=== PATIENT | female | born 1970 | race Caucasian/White ===

== ENCOUNTER → 2018-01-01 14:29 | Outpatient (CLI) | payer OTHER, SELFPAY ==
--- NOTE | 2018-01-01 14:34 | BD_ITS ---
STUDY: DUAL ENERGY X-RAY ABSORPTIOMETRY / DXA REASON FOR EXAM: Female, 47 years old. Postmenopausal female. History of breast cancer. Smoker. TECHNIQUE: Bone Mineral Density (BMD) measurements of lumbar spine and left hip were obtained. COMPARISON: None. FINDINGS: Lumbar Spine (L1-L4): g/cm2 (0.995) / T-score (-1.5) / Z-score (-1.2) Findings are suggestive of osteopenia with a moderate fracture risk. Left Femur Total: g/cm2 (0.660) / T-score (-2.8) / Z-score (line is 2.3) Left Femoral Neck: g/cm2 (0.692) / T-score (-2.5) / Z-score (-1.7) BD/Dexa Bone Density Study IMPRESSION: The patient is considered osteoporotic as outlined below according to World John Organization (WHO) criteria with a high fracture risk. Reference Information: The T-score is the number of standard deviations above or below the standard which is normal for young adults at their peak bone mineral density. The World Health Organization (WHO) interprets the T-scores as follows: Above -1 Normal bone density Between -1 and -2.5 Osteopenia Equal to / or below -2.5 Osteoporosis As a practical clinical guideline, osteopenia may be graded as follows: Mild -1 through -1.5 Moderate -1.6 through -2.0 Severe -2.1 through -2.4 The Z-score is the number of standard deviations above or below age-matched controls. A Z-score of less than -1.5 would be considered abnormal. References: 1. NIH Osteoporosis and Related Bone Diseases http://www.osteo.org 2. International Society for Clinical Densitometry http://www.iscd.org 3. National Osteoporosis Foundation http://www.nof.org Electronically Signed: Bobby Lynn DO at 9:06 EDT Tel [phone], Service support ,
== END ==
DX: M89.9 Disorder of bone, unspecified (principal)
CPT/HCPCS: 77080

== ENCOUNTER 2018-02-11 16:56 | Emergency (ER) | payer OTHER, SELFPAY ==
[2018-02-11 16:57] VITALS: BP 138/84; PULSE 99; RESP 16; TEMP 36.9; O2SAT 98; BMI 21.4
--- NOTE | 2018-02-11 17:20 | EKG12_ITS ---
Test Reason : CP Blood Pressure : / mmHG Vent. Rate : 083 BPM Atrial Rate : 083 BPM P-R Int : 128 ms QRS Dur : 080 ms QT Int : 382 ms P-R-T Axes : 053 053 070 degrees QTc Int : 448 ms Normal sinus rhythm Normal ECG Confirmed by CYNDY LANE, NOAM ([id number]), research editor FARAZ JOHNSON ([id number]) on 02/13/2018 2:46:15 PM Referred By: TAWNYA Confirmed By:NOAM NAYLOR MD
--- NOTE | 2018-02-11 17:23 | ED.VISSUMM ---
- ER Visit Summary Date of Service: 02/11/18 Chief Complaint: Chest pain History of Present Illness: The patient is a 48 F with a few week history of reflux and pain in her lower ribs. She was seen by Suzi Hardin today and sent to the emergency room. Patient states she did leave work early last night because she felt feverish and achy. She developed a cough yesterday as well. Patient has a history of COPD, high cholesterol, reflux disease, breast cancer with a lumpectomy a year and a half ago. Physical Examination: Vital signs are unremarkable. Pulse ox is 98% on room air. Patient sitting upright in bed no acute distress. Head neck examination is normal. Heart is regular rate and rhythm. Lung sounds are clear. She has reducible tenderness in the bilateral lower ribs laterally. Abdomen is soft with tenderness in epigastric region. No guarding or rebound. Lower extremity examination was no calf tenderness or edema. Test Results: EKG is sinus 83 with no sign of acute ischemia. Portable chest x-ray shows hyperexpansion without other findings. CBC and chemistry studies are unremarkable. Troponin is less than 0.015. D-dimer slightly elevated at 0.71. CTA of the chest was obtained with no evidence of PE. The descending aorta is measuring 3.4 cm in diameter. There is a focal peribronchial consolidation in the right middle lobe which may represent early pneumonia. Emphysema is noted. Emergency Department Course and Treatment: Patient was given a GI cocktail and Protonix here. On repeat evaluation her reflux is improved. Patient has had a bit of fever and cough. She will be treated with a course of Levaquin, first dose given here. She will also be given a prescription for Protonix. Treatment Plan: [] Disposition: Discharge Impression: 1. Pneumonia 2. GERD This note was generated with [employer] dictation software. It may contain incorrect words, spelling, and punctuation that were not noted in review of the chart prior to signing ED Disposition - Plan for ED Patient: Chief Complaint: Chest Pain Referrals: Marianne Hidalgo NP-C [Primary Care Provider] -
--- NOTE | 2018-02-11 17:25 | RAD_ITS ---
STUDY: X-RAY CHEST REASON FOR EXAM: Female, 48 years old. Chest pain TECHNIQUE: Single AP portable view of the chest. COMPARISON: Prior chest radiograph of May 27, 2017 FINDINGS: Continued generalized hyperexpansion without new consolidation, focal atelectasis or pleural effusion. There is no demonstrated pleural abnormality. Normal size heart. Normal mediastinum and gurpreet. Normal visualized pulmonary arteries. There is atherosclerotic tortuosity of the aortic arch and descending thoracic aorta. Normal visualized thoracic spine. Normal visualized ribs, clavicles, and shoulders. There is no demonstrated abnormality of the visualized soft tissue structures of the upper abdomen. RAD/Chest 1 View (Portable) IMPRESSION: Continued hyperexpansion without other findings or changes. Electronically Signed: Kimberli Lancaster MD at 18:02 EDT , Service support ,
[2018-02-11] MEDS: 0.9% Normal Saline 1,000 ML 150 ML IV (17:42)
[2018-02-11] MEDS: Aspirin 81 MG TAB.CHEW 324 MG PO (17:42)
[2018-02-11] MEDS: Pantoprazole Sodium 40 MG Tablet PO (17:43)
[2018-02-11 17:45] LABS: Absolute Lymphocyte Count 1.49 X10^3/ul (0.83-4.51); Absolute Neutrophil Count 5.5 X10^3/uL (2.0-7.7); Basophil# 0.03 X10^3/uL; Basophil% 0.4 % (0-1); Eosinophil# 0.18 X10^3/uL; Eosinophils% 2.2 % (0-5); Hematocrit 39.3 % (37-47); Hemoglobin 13.1 g/dl (12.0-15.0); Lymphocyte # 1.49 X10^3/ul (4.0); Lymphocyte % 18.6 % (19-41); Mean Corp Hgb Conc 33.3 g/gl (32-36); Mean Corpuscular Hgb 30.9 pg (27.0-32.0); Mean Corpuscular Volume 92.7 fL (81-99); Mean Platelet Vol. 8.4 fl (6.2-12.0); Monocyte# 0.79 X10^3/uL; Monocyte% 9.8 % (0-10); Neutrophil # 5.53 X10^3/uL (2.7-7.7); Neutrophil % 68.9 % (47-70); Platelet Count 242 K/mm3 (150-450); RBC Distribution Width CV 13.4 % (11.6-14.6); RBC Distribution Width SD 44.8 fl (35.1-43.9); Red Blood Count 4.24 M/mm3 (4.2-5.4)
[2018-02-11 17:46] LABS: POSITIVE COUNT NO; POSITIVE DIFFERENTIAL NO; POSITIVE MORPHOLOGY NO
[2018-02-11 17:56] LABS: D-Dimer Quantitative (DVT/PE) 0.71 FEU/ug/m (0.27-0.49)
--- NOTE | 2018-02-11 17:58 | ED.RN ---
[facility]. MD AND NURSE NOTIFIED
[2018-02-11 18:02] LABS: Anion Gap 6 (5-15); BUN 11 mg/dL (7-18); BUN/Creat Ratio 13.1 RATIO (10-20); Chloride 107 mmol/L (98-107); Creatinine, Serum 0.84 mg/dL (0.55-1.02); EST Glomerular Filtration Rate 77 mL/min (>60); Est Glom Filt Rate - Afr Amer 93 mL/min (>60); Estimated Creatinine Clearance 77.92 ml/min; Glucose 84 mg/dL (74-106); Potassium 3.7 mmol/L (3.5-5.1); Sodium Level 140 mmol/L (136-145)
[2018-02-11 18:05] VITALS: BP 115/87; PULSE 89; RESP 18; O2SAT 98
[2018-02-11 18:06] VITALS: BP 115/87; PULSE 83; RESP 28; O2SAT 99
--- NOTE | 2018-02-11 18:16 | CT_ITS ---
STUDY: CTA CHEST REASON FOR EXAM: Female, 48 years old. Chest pain and elevated d-dimer. History of COPD and breast cancer. RADIATION DOSAGE (If Supplied By Facility): CTDIvol = ( 5.17 ) mGy, DLP = ( 235.01 ) mGycm TECHNIQUE: The examination was performed with the intravenous administration of 75 prior chest radiograph of February 11, 2018 ml of Isovue 370 contrast material. Post-processing of the angiographic images was performed, with multiplanar reformation and 3D reconstruction. Individualized dose optimization techniques were used for this CT. COMPARISON: None. FINDINGS: Normal enhancement of the main pulmonary artery and right and left pulmonary arteries. Normal enhancement of the bilateral peripheral pulmonary arteries. There is no demonstrated pulmonary embolism. Diameter of the descending aorta is 3.4 cm. Otherwise negative for plaque or tortuosity. There is no demonstrated aortic dissection. Normal heart and pericardium. Normal mediastinum. Normal hilar regions. Emphysematous changes of the upper lobes. Focal peribronchial consolidation in the medial segment of the right middle lobe. Mild bibasilar atelectatic changes. Negative for pleural effusion. Normal chest wall structures. Normal osseous structures. Normal visualized upper abdomen. CT/CTA Chest W/WO Contrast IMPRESSION: Negative for pulmonary embolus. Diameter of the ascending aorta is 3.4 cm. Otherwise negative for calcified plaque, tortuosity or dissection. Negative for coronary calcifications. Focal peribronchial consolidation in the medial segment of the right middle lobe, potential pneumonic process. Negative for hilar or mediastinal mass density. Generalized emphysematous changes of the upper lung zones. Bronchial thickening of the lower lung zones. Mild posterior bibasilar atelectatic changes. Negative for pleural effusion. Electronically Signed: Kimberli Lancaster MD at 19:27 EDT , Service support ,
[2018-02-11 19:25] VITALS: BP 118/74; PULSE 71; RESP 18; O2SAT 99
--- NOTE | 2018-02-11 20:01 | DCINST.ED_ITS ---
ED Disposition - Plan for ED Patient: Disposition: Home or Assisted Living Chief Complaint: Chest Pain Instructions: ED Pneumonia Adult, ED GERD Prescriptions: Levofloxacin [Levaquin] 750 mg PO DAILY #4 tablet Pantoprazole Sodium [Protonix] 40 mg PO DAILY #14 tablet Referrals: Marianne Hidalgo, TEA BAG MACHINE TENDER-C [Primary Care Provider] - 1 Week
[2018-02-11 20:09] VITALS: BP 118/87; PULSE 84; PULSE 90; RESP 17; RESP 19; O2SAT 98; O2SAT 99
[2018-02-11] MEDS: levoFLOXacin 750 MG Tablet PO (20:14)
== END 2018-02-11 20:18 | disposition home or self-care (01) ==
PROVIDERS: Emergency Provider Emergency Medicine; Family Provider Nurse Practitioner Family; PCP Nurse Practitioner Family
DX: J18.9 Pneumonia, unspecified organism (principal); R07.9 Chest pain, unspecified; K21.9 Gastro-esophageal reflux disease without esophagitis; R79.89 Other specified abnormal findings of blood chemistry; F32.9 Major depressive disorder, single episode, unspecified; J44.9 Chronic obstructive pulmonary disease, unspecified; E78.00 Pure hypercholesterolemia, unspecified; Z85.3 Personal history of malignant neoplasm of breast; Z79.899 Other long term (current) drug therapy; Z72.0 Tobacco use
CPT/HCPCS: 71045; 71275; 80048; 84484; 85025; 85379; 93005; 96360; 96361; 99285; J7030; Q9967

== ENCOUNTER → 2018-02-13 15:00 | Outpatient (CLI) | payer OTHER, SELFPAY ==
--- NOTE | 2018-02-13 15:29 | VDLE_ITS ---
Reason For Study: LEG PAIN RIGHT LEFT CFV is compressible, spontaneous, phasic, GSV is normal. competent and demonstrates normal CFV is compressible, spontaneous, phasic, augmentation. competent, and demonstrates normal Procedure augmentation. Exam performed in department. FV is compressible, spontaneous, phasic, A preliminary report was called and/or faxed competent and demonstrates normal to Rolando Lucio. augmentation. POP V is compressible, spontaneous, phasic, competent and demonstrates normal augmentation. T/P Trunk is compressible. PTV is compressible. LT PerV is compressible. Interpretation Summary Deep veins of the left lower extremity are patent and compressible segmentally. There is no evidence of left lower extremity deep vein thrombosis. Valvular competence appears intact within the proximal deep venous system on the left . The left greater saphenous vein appears patent and compressible segmentally. Ordering Physician: ROLANDO LUCIO Referring Physician: Rolando Beebe Performed By: Destini Leslie RVT
== END ==
DX: M79.605 Pain in left leg (principal)
CPT/HCPCS: 93971

== ENCOUNTER → 2018-03-06 14:48 | Outpatient (CLI) | payer OTHER, SELFPAY ==
--- NOTE | 2018-03-06 15:01 | RAD_ITS ---
STUDY: X-RAY CHEST REASON FOR EXAM: Female, 48 years old. Recent treatment for pneumonia. History of breast cancer. TECHNIQUE: PA and lateral views of the chest. COMPARISON: Comparison is made with prior study dated February 11, 2018. FINDINGS: Hyperinflation. Scattered calcified granulomas. No acute abnormality is seen. There is no demonstrated pleural abnormality. Normal size heart. Normal mediastinum and gurpreet. Normal visualized pulmonary arteries. Normal visualized aortic arch and descending thoracic aorta. Normal visualized thoracic spine. Normal visualized ribs, clavicles, and shoulders. There is no demonstrated abnormality of the visualized soft tissue structures of the upper abdomen. RAD/Chest PA and Lateral IMPRESSION: Hyperinflation. No acute abnormality is seen. Electronically Signed: Fady Carpio MD at 15:28 EDT Tel [phone], Service support ,
== END ==
DX: J18.9 Pneumonia, unspecified organism (principal)
CPT/HCPCS: 71046

== ENCOUNTER 2018-03-11 20:13 | Emergency (ER) | payer OTHER, SELFPAY ==
[2018-03-11 20:14] VITALS: BP 123/92; PULSE 118; RESP 31; TEMP 36.7; O2SAT 99; BMI 21.7
--- NOTE | 2018-03-11 20:36 | EKG12_ITS ---
Test Reason : CP Blood Pressure : / mmHG Vent. Rate : 106 BPM Atrial Rate : 106 BPM P-R Int : 148 ms QRS Dur : 080 ms QT Int : 360 ms P-R-T Axes : 080 052 080 degrees QTc Int : 478 ms Sinus tachycardia Nonspecific T wave abnormality Abnormal ECG Confirmed by LUIS MIGUEL LANE, OSKAR ([id number]), assistant production editor FARAZ JOHNSON ([id number]) on 03/17/2018 2:34:00 PM Referred By: uSzi [facility] Confirmed By:OSKAR BOLANOS MD
[2018-03-11 20:39] VITALS: O2SAT 96
[2018-03-11 20:47] LABS: Absolute Lymphocyte Count 0.77 X10^3/ul (0.83-4.51); Absolute Neutrophil Count 7.5 X10^3/uL (2.0-7.7); Basophil# 0.02 X10^3/uL; Basophil% 0.2 % (0-1); Eosinophil# 0.01 X10^3/uL; Eosinophils% 0.1 % (0-5); Hemoglobin 13.6 g/dl (12.0-15.0); Lymphocyte # 0.77 X10^3/ul (4.0); Mean Corp Hgb Conc 34.9 g/gl (32-36); Mean Corpuscular Hgb 31.6 pg (27.0-32.0); Mean Corpuscular Volume 90.7 fL (81-99); Mean Platelet Vol. 8.7 fl (6.2-12.0); Monocyte# 0.24 X10^3/uL; Monocyte% 2.8 % (0-10); Neutrophil # 7.53 X10^3/uL (2.7-7.7); Neutrophil % 87.7 % (47-70); Platelet Count 271 K/mm3 (150-450); RBC Distribution Width CV 13.4 % (11.6-14.6); White Blood Count 8.6 K/mm3 (4.4-11.0)
[2018-03-11 20:48] LABS: POSITIVE COUNT NO; POSITIVE DIFFERENTIAL NO; POSITIVE MORPHOLOGY NO
--- NOTE | 2018-03-11 20:48 | RAD_ITS ---
STUDY: X-RAY CHEST REASON FOR EXAM: Female, 48 years old. Chest pain. TECHNIQUE: Single AP portable view of the chest. COMPARISON: March 06, 2018. FINDINGS: There is a minimally decreased inspiratory effort. There is no new infiltrate or mass. There is no demonstrated pleural abnormality. Normal size heart. Normal mediastinum and gurpreet. Normal visualized pulmonary arteries. Normal visualized aortic arch and descending thoracic aorta. The thoracic spine is obscured by the mediastinum. Normal visualized ribs, clavicles, and shoulders. There is no demonstrated abnormality of the visualized soft tissue structures of the upper abdomen. RAD/Chest 1 View (Portable) IMPRESSION: No acute cardiopulmonary disease or major interval change. Electronically Signed: Bobby Lynn DO at 21:03 EDT Tel [phone], Service support ,
[2018-03-11 20:59] LABS: Anion Gap 12 (5-15); BUN 11 mg/dL (7-18); BUN/Creat Ratio 10.5 RATIO (10-20); Calcium,Total 9.4 mg/dL (8.5-10.1); Chloride 104 mmol/L (98-107); Creatinine, Serum 1.05 mg/dL (0.55-1.02); EST Glomerular Filtration Rate 59 mL/min (>60); Est Glom Filt Rate - Afr Amer 71 mL/min (>60); Estimated Creatinine Clearance 62.33 ml/min; Glucose 167 mg/dL (74-106); Potassium 3.2 mmol/L (3.5-5.1); Sodium Level 142 mmol/L (136-145)
--- NOTE | 2018-03-11 21:13 | CT_ITS ---
STUDY: CTA OF THE ABDOMINAL AORTA REASON FOR EXAM: Female, 48 years old. Abdominal pain. Question dissection. History of pneumonia and breast cancer. RADIATION DOSAGE (If Supplied By Facility): CTDIvol = ( 6.61 ) mGy, DLP = ( 320.77 ) mGycm TECHNIQUE: Axial CT angiography multi-detector data acquisition was obtained from the diaphragm to the upper pelvic following intravenous administration of 100ML ml of Isovue 370 contrast. Axial images and MIP images were reconstructed from the axial data set. Post-processing of the angiographic images was performed, with multiplanar reformation and 3D reconstruction. Individualized dose optimization techniques were used for this CT. TECHNICAL QUALITY: Good COMPARISON: None. Descriptors of Narrowing: None (0%) Mild (< 50%) Moderate (50-70%) Severe (70-90%) Subtotal/Total Occlusion (90-100%) Non-Evaluable (technically non-diagnostic FINDINGS: Abdominal aorta: There is minimal atherosclerotic changes of the abdominal aorta. There is no evidence of stricture. There is a small fusiform dilatation of the distal aorta measuring 2.1 x 1.8 cm at the level of the SMA. This tapers to the bifurcation. There is no dissection. Celiac and superior mesenteric arteries: No demonstrated narrowing. Inferior mesenteric artery: No demonstrated narrowing. Right renal artery(arteries): No demonstrated narrowing. Left renal artery(arteries): No demonstrated narrowing. Right common iliac artery: Normal atherosclerotic changes without stenosis. Right external iliac artery: No demonstrated narrowing. Right internal iliac artery: No demonstrated narrowing. Left common iliac artery: There is minimal atherosclerotic changes without stenosis Left external iliac artery: No demonstrated narrowing. Left internal iliac artery: Minimal atherosclerotic changes without stenosis. The lung bases are clear. The heart is normal in size. The liver is mildly enlarged but without mass. Normal gallbladder and biliary ductal system. Normal spleen. Normal pancreas. Normal adrenal glands. Normal kidneys. Normal IVC and retroperitoneum. There is a type I hiatal hernia. The distal stomach is unremarkable. Normal visualized small bowel. Normal visualized colon. Normal abdominal wall. Normal lumbar spine. IMPRESSION: 1. No evidence of aortic dissection. 2. Small fusiform infrarenal abdominal aortic aneurysm with a maximum diameter of 2.1 x 1.8 cm. 3. Hepatomegaly. 4. Hiatal hernia 5. No other evidence for abdominal or pelvic abnormality. Electronically Signed: Bobby Lynn DO at 22:03 EDT Tel [phone], Service support , STUDY: CTA CHEST REASON FOR EXAM: Female, 48 years old. Chest and abdominal pain. Question dissection. Recent pneumonia. History of breast cancer. RADIATION DOSAGE (If Supplied By Facility): CTDIvol = ( ) mGy, DLP = ( ) mGycm TECHNIQUE: The examination was performed with the intravenous administration of 100ML ml of Isovue 370 contrast material. Post-processing of the angiographic images was performed, with multiplanar reformation and 3D reconstruction. Individualized dose optimization techniques were used for this CT. COMPARISON: Chest, March 11, 2018. CTA of the chest, February 11, 2018. FINDINGS: Normal enhancement of the main pulmonary artery and right and left pulmonary arteries. Normal enhancement of the bilateral peripheral pulmonary arteries. There is no demonstrated pulmonary embolism. Normal thoracic aorta and visualized great vessels. There is no aneurysm. There is no demonstrated aortic dissection. Normal heart and pericardium. Normal mediastinum. Normal hilar regions. Normal visualized trachea and bronchi. The lungs are hyper expanded, with flattening of the hemidiaphragms. There are emphysematous changes of lungs without focal mass or infiltrate. Normal pleura. Normal chest wall structures. Normal osseous structures. There is a large type I hiatal hernia. Visualized abdomen is unremarkable. CT/CTA Abdomen W/WO Contrast IMPRESSION: 1. No evidence of aortic aneurysm or dissection. 2. No evidence of pulmonary embolus. 3. Emphysematous changes of lungs without mass or infiltrate. 4. Hiatal hernia Electronically Signed: Bobby Lynn DO at 22:03 EDT Tel [phone], Service support ,
[2018-03-11 21:23] VITALS: BP 125/94; PULSE 101; RESP 19; O2SAT 97
[2018-03-11 21:40] LABS: Lipase 117 U/L (73-393)
[2018-03-11 21:41] LABS: AST(SGOT) 36 U/L (15-37); Alanine Aminotransfer ALT/SGPT 36 U/L (13-56); Albumin, Serum 4.3 g/dL (3.2-5.0); Alkaline Phosphatase 85 U/L (45-117); Bilirubin, Direct 0.12 mg/dL (0.00-0.30); Globulin 3.6 g/dL (2.2-4.2); Protein, Total 7.9 g/dL (6.4-8.2)
[2018-03-11 23:06] VITALS: BP 137/89; PULSE 101; RESP 20; O2SAT 94
[2018-03-12 00:14] VITALS: BP 142/88; PULSE 91; O2SAT 98
--- NOTE | 2018-03-12 00:31 | ED.DCSUM_ITS ---
- ER Visit Summary Date of Service: 03/12/18 Chief Complaint: Heartburn History of Present Illness: The patient is a 48 F who presents with chief complaint of heartburn. She complains of pain in her lower chest and upper abdomen which she describes as burning and pressure-like. She has had symptoms like this previously. She improved with a GI cocktail. She also complains of nausea. However she also complains of burning pain in the back of her left shoulder and down her left arm as well as pain down her left leg. She had prior similar symptoms recently. She was ultimately diagnosed with pneumonia based on some subtle changes on CT of the chest. She came in because her symptoms were worse today. Physical Examination: Initial heart rate 118 pulse ox 96% respiratory rate 31 Patient is tearful and appears very anxious Moist mucous membranes Heart regular rhythm tachycardia Lungs are clear Abdomen soft nontender nondistended Studies nontender no edema 2+ radial and dorsalis pedis pulses 5 out of 5 dorsiflexion, plantarflexion, extensor hallucis longus Alert with no focal or lateralizing neurological deficits Test Results: EKG shows a sinus rhythm at rate 106. Chest x-ray shows no acute process. CBC BMP hepatic function lipase troponin all normal. CTA of the chest and abdomen showed a small fusiform abdominal aortic aneurysm otherwise normal. Emergency Department Course and Treatment: Given patient's report of chest pain abdominal pain as well as arm and leg pain duration was given to aortic dissection. Workup is unremarkable. Patient was given a GI cocktail here with further improvement of symptoms again. We will place her on Prilosec and Carafate. Patient will follow-up with her primary care physician. I do believe a component of her symptoms are psychosomatic in nature. However she was advised of the need for further outpatient workup and evaluation and understands to return for new or worsening symptoms. Treatment Plan: [] Disposition: Discharge Impression: Chest pain Abdominal pain Left arm pain Left leg pain This note was generated with [employer] dictation software. It may contain incorrect words, spelling, and punctuation that were not noted in review of the chart prior to signing ED Disposition - Plan for ED Patient: Chief Complaint: Chest Pain Referrals: Suzi Beebe [Primary Care Provider] -
--- NOTE | 2018-03-12 00:34 | ED.DEP ---
ED Disposition - Plan for ED Patient: Chief Complaint: Chest Pain Instructions: ED Gastritis, ED Chest Pain NonCardiac, ED Abdominal Pain Unkn Cause Prescriptions: Omeprazole [Prilosec] 20 mg PO DAILY #30 cap Sucralfate [Carafate] 1 gm PO 4X/DAY #40 tab Referrals: Free Keaton,Suzi Hardin [Primary Care Provider] -
[2018-03-12 00:40] VITALS: RESP 18
== END 2018-03-12 00:41 | disposition home or self-care (01) ==
LOC: ED 21:22
PROVIDERS: Emergency Provider Emergency Medicine
DX: R07.89 Other chest pain (principal); R10.10 Upper abdominal pain, unspecified; M79.602 Pain in left arm; M79.605 Pain in left leg; R06.00 Dyspnea, unspecified; R11.0 Nausea; R05 Cough; I71.4 Abdominal aortic aneurysm, without rupture; J44.9 Chronic obstructive pulmonary disease, unspecified; E78.00 Pure hypercholesterolemia, unspecified; F41.9 Anxiety disorder, unspecified; Z90.710 Acquired absence of both cervix and uterus; Z79.899 Other long term (current) drug therapy; Z72.0 Tobacco use
CPT/HCPCS: 71045; 71275; 74175; 80048; 80076; 83690; 84484; 85025; 93005; 99284; Q9967

== ENCOUNTER → 2018-05-08 09:07 | Outpatient (CLI) | payer OTHER, SELFPAY | DX: Z86.000 Personal history of in-situ neoplasm of breast (principal) | CPT/HCPCS: 77062; 77066; G0279 ==

== ENCOUNTER 2018-05-14 09:05 | Day surgery (SDC) | payer OTHER, SELFPAY ==
--- NOTE | 2018-05-14 | GASB_PTH ---
PATIENT: DUANE CALLAHAN LOC: EN U#:[id number] AGE/SX: 48/F ROOM: RE05/14/[address]: Dr. Ralph Guerrero MD : 1970 BED: DIS: 05/14/2018 SPEC #: [id number] RECD: 05/14/18 12:48 STATUS: HERMAN AME #: [id number] MURTAZA: 05/14/18 00:[address]: Ralph Guerrero DEPT: SURGICAL PATHOLOGY RECD BY: Jamari Shin ENTERED: 05/14/18 12:48 SP TYPE: Gastric Bx OTHR DR: Marianne Hidalgo, MARKETING SENIOR RECRUITER-C [facility] [place] Tissues: Gastric mucous membrane Procedures: Surgery Specimen Level IV HEADER OPERATION: Colonoscopy, EGD ([facility]) PRE-OP DIAGNOSIS: Epigastric pain, hiatal hernia TISSUE SUBMITTED: Antral biopsy for histo and H. pylori MICROSCOPIC DIAGNOSIS Antral biopsy: Mild gastritis. SJ:modesta 05/15/18 COMMENT The results of immunohistochemistry for Helicobacter pylori will be reported separately ([id number]). MICROSCOPIC DESCRIPTION Slides are reviewed. The specimen shows fragments of gastric mucosa with chronic inflammatory cell infiltrates in the lamina propria consisting of lymphocytes and plasma cells, consistent with mild chronic gastritis. GROSS DESCRIPTION Received in fixative is one container labeled with the patient's name and designated antral biopsy. The specimen consists of one irregular fragment of light duarte soft tissue that measures 0.3 x 0.3 x 0.1 cm. The specimen is totally submitted in one cassette. / BRENDEN:modesta 05/14/18 TC:5 CPT: 14962
[2018-05-14 09:23] VITALS: BP 120/84; PULSE 88; RESP 16; TEMP 36.2; O2SAT 100; BMI 22.6
--- NOTE | 2018-05-14 09:57 | PCM.OPRPT ---
Problem List (1) Epigastric pain Status: Acute (2) Screen for colon cancer Status: Acute Report of Operation Date of Procedure: 05/14/18 Pre-Operative Diagnosis: Epigastric abdominal pain. Screening colonoscopy Post-Operative Diagnosis: Same Surgery/Procedure Performed:: Esophagogastroduodenoscopy with biopsy. Flexible sigmoidoscopy Type of Anesthesia:: MAC Description of Procedure: Patient was brought into the endoscopy suite back of her throat was sprayed with Cetacaine spray. A bite block was placed. She was placed on the left lateral decubitus position. She was given graded anesthesia. The scope was inserted into the back of the oropharynx and directed down through the esophagus into the stomach and into the duodenum without difficulty operative findings: 1. Duodenum: Normal appearance no mass lesions no ulcerations no signs of bleeding this was all the way from the duodenal bulb through the second part of the duodenum it looked pristine. The pylorus looked pristine. 2. Stomach: Significant antral gastritis biopsy for H. pylori was obtained. There was no signs of ulcerations. Retroflexion did show a small hiatal hernia. No masses were identified. 3. Esophagus: Z line was at 39 cm diaphragmatic hiatus was at 41 cm. This area looked normal without any signs of esophagitis. Z line was in perfect condition. There was no indications for any biopsies. Colonoscope was inserted into the rectum patient had solid stool in the rectum as I try to get in and around and through the sigmoid colon it was obvious that the bowel prep had not been accomplished any degree of satisfaction and I felt that the risk of injury outweighed any benefit that I would see in doing the colonoscopy on her particularly when I need to look at the mucosa and it is discovered with solid stool I aborted the procedure only completing a flexible sigmoidoscopy which was severely limited due to the amount of stool located within her colon. I will get her rescheduled and do a different bowel prep on her see if we can better clear her out. - Admit VTE Documentation VTE Present on Admission: No VTE Mechan Device Prophylaxis: SCD's VTE Pharm Prophylaxis ordered?: No Reason prophylaxis not ordered:: Treatment Not Indicated
--- NOTE | 2018-05-14 10:00 | IMM_PTH ---
PATIENT: DUANE CALLAHAN LOC: EN U#:[id number] AGE/SX: 48/F ROOM: RE05/14/[address]: Dr. Ralph Guerrero MD : 1970 BED: DIS: 05/14/2018 SPEC #: [id number] RECD: 05/14/18 12:29 STATUS: HERMAN RENarayan #: [id number] MURTAZA: 05/14/18 10:[address]: Ralph Guerrero DEPT: IMMUNOHISTOCHEMISTRY RECD BY: Tawanna De Leon ENTERED: 05/14/18 12:30 SP TYPE: IMMUNO OTHR DR: Marianne Hiadlgo, FABRIC FINISHER-C [facility] Tissues: Stomach, NOS Procedures: H Pylori (initial) PHYSICIAN & INSTITUTION [place] [id number] SPECIMEN INFORMATION: Tissue Source: Antral biopsy Clinical Info: Epigastric pain, hiatal hernia Specimen Number: [id number] CPT code: 69074 METHODOLOGY: Deparaffinized sections of prefer/formalin-fixed tissue or PAP/DQ stained slides are incubated with monoclonal/polyclonal antibodies/oligonucleotide probes. Localization is made via biotin free immunoperoxidase method. Appropriate controls are performed and reacted as expected. Results on target cell population are indicated in the following table: RESULTS: ANTIBODY / CLONE RESULT H Pylori (polyclonal) negative These tests were developed and their performance characteristics determined by [facility]. They may not have been cleared or approved by the U.S. Food and Drug Administration. The FDA has determined that such clearance or approval is not necessary. INTERPRETATION: Antral biopsy: Negative for Helicobacter pylori organisms. SJ:modesta 05/15/18
[2018-05-14 10:21] VITALS: BP 102/80; BP 120/84; PULSE 82; RESP 16; TEMP 36.3; O2SAT 95
[2018-05-14 10:26] VITALS: BP 112/77; BP 120/84; PULSE 84; RESP 16; O2SAT 98
[2018-05-14 10:31] VITALS: BP 103/83; BP 120/84; PULSE 86; RESP 16; O2SAT 96
[2018-05-14 10:36] VITALS: BP 120/84; PULSE 71; RESP 16; TEMP 36.4; O2SAT 98
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
[2018-05-14 11:49] VITALS: BP 120/84
== END 2018-05-14 12:00 | disposition home or self-care (01) ==
LOC: EN 09:06 → AC 09:07
PROVIDERS: Visit Provider Surgery
PROC: 0DJD8ZZ Inspection of Lower Intestinal Tract, Via Natural or Artificial Opening Endoscopic (ICD-10-PCS; CPT 45378; principal; 2018-05-14 09:55)
DX: Z12.11 Encounter for screening for malignant neoplasm of colon (principal); K29.70 Gastritis, unspecified, without bleeding; K44.9 Diaphragmatic hernia without obstruction or gangrene; K21.9 Gastro-esophageal reflux disease without esophagitis; F32.9 Major depressive disorder, single episode, unspecified; F41.9 Anxiety disorder, unspecified; M19.90 Unspecified osteoarthritis, unspecified site; J44.9 Chronic obstructive pulmonary disease, unspecified; E78.00 Pure hypercholesterolemia, unspecified; F31.9 Bipolar disorder, unspecified; Z85.3 Personal history of malignant neoplasm of breast; Z87.898 Personal history of other specified conditions; Z79.899 Other long term (current) drug therapy; F17.200 Nicotine dependence, unspecified, uncomplicated
CPT/HCPCS: 45330; 43239; 88305; 88342; J7120

== ENCOUNTER → 2018-06-04 09:52 | Outpatient (CLI) | payer OTHER, SELFPAY ==
--- NOTE | 2018-06-04 09:53 | NM_ITS ---
CLINICAL: 48-year-old female with reported history of epigastric pain. SEMI-SOLID PHASE 99m Tc SULFUR COLLOID GASTRIC EMPTYING STUDY COMPARISON: CTA of the abdomen report 03/11/2018 FINDINGS: The patient was administered 1.1 mCi of 99m Tc sulfur colloid mixed with oatmeal and consumed per os. Image acquisitions in the anterior-posterior projections for a total of 60 minutes. There is prompt visualization of the stomach. There is no gastroesophageal reflux identified. The T1/2 linear fit was calculated to be 30.93 minutes, (Normal: 12-56 minutes). NM/Gastric Emptying Study IMPRESSION: 1. NORMAL 99m Tc sulfur colloid semi-solid phase (oatmeal) gastric emptying imaging examination. A. There is normal and preserved semi-solid phase gastric emptying compared to normal controls with maintained first order kinetics throughout all components of the examination. (Renata et al, J Nucl Med Tech 38: 186, 2010). Electronically Signed: Arnie Nash DO at 7:24 EDT Tel , Service support ,
== END ==
PROVIDERS: Referring Provider Surgery; Visit Provider Surgery
DX: R10.9 Unspecified abdominal pain (principal)
CPT/HCPCS: 78264; A9541

== ENCOUNTER 2018-06-25 08:12 | Day surgery (SDC) | payer OTHER, SELFPAY ==
[2018-06-25 08:39] VITALS: BP 113/83; PULSE 71; RESP 16; TEMP 36.3; O2SAT 100
--- NOTE | 2018-06-25 09:59 | SUR.OPER ---
LIDOCAINE GEL APPLIED TO R.NARE. PROBE INSERTED TO APPROPRIATE LOCATION. TAPED TO NOSE WITH BLUE TAPE. PT. RECLINED. MANOMETRY TESTING PERFORMED. PROBE REMOVED. RN ESCORTED PT. OUT TO WAITING ROOM.
== END 2018-06-25 09:03 | disposition home or self-care (01) ==
LOC: EN 08:12
PROVIDERS: Referring Provider Surgery; Visit Provider Surgery
PROC: F00ZJWZ Instrumental Swallowing and Oral Function Assessment using Swallowing Equipment (ICD-10-PCS; CPT 43235; principal; 2018-06-25 08:25)
DX: K21.9 Gastro-esophageal reflux disease without esophagitis (principal)
CPT/HCPCS: 91010; 91013

== ENCOUNTER → 2018-08-05 10:31 | Outpatient (CLI) | payer OTHER, SELFPAY ==
--- NOTE | 2018-08-05 14:42 | NEURO ---
NCS and/or EMG Patient Report Ordering Doctor: Suzi Hardin DATE OF SERVICE: 08/05/18 Gali Rivas is a 48-year-old female presents for electrodiagnostic testing of the right upper limb. She reports numbness and tingling in the right hand, primarily the third and fourth digit. Electrodiagnostic findings: Right median motor nerve demonstrates normal distal latency with normal amplitude and reduced conduction velocity. Borderline prolonged right median sensory latency is noted at the wrist. Normal ulnar and radial sensory responses. Median and ulnar F waves were within normal limits. Needle EMG testing shows no evidence of denervation with normal motor unit action potentials. Electrodiagnostic impression: This is an abnormal study in the right upper limb 1. Elective diagnostic findings demonstrate right-sided median mononeuropathy. This consistent with a mild right carpal tunnel syndrome. If there are any further questions, please do not hesitate to contact me
== END ==
DX: M79.601 Pain in right arm (principal)
CPT/HCPCS: 95886; 95909

== ENCOUNTER → 2019-07-19 12:58 | Outpatient (CLI) | payer SELFPAY ==
--- NOTE | 2019-07-19 13:01 | ART_ITS ---
Reason For Study: BLE edema L>R Procedure A bilateral lower extremity continuous wave Doppler with analog waveform analysis,segmental pressures,and ankle brachial indexes without exercise. Left Segmental Pressures Left brachial= 120mmHg. Left posterior tibial artery = 124mmHg. Left dorsalis pedis artery = 119mmHg. The left posterior tibial artery waveforms are triphasic. The left dorsalis pedis waveforms are triphasic. Right Segmental Pressures Right brachial= 121mmHg. Right posterior tibial artery = 125mmHg. Right dorsalis pedis artery = 122mmHg. The right posterior tibial artery waveforms are triphasic. The right dorsalis pedis waveforms are triphasic. Indices The right resting ankle brachial index is 1.03. The right ankle brachial index by the posterior tibial artery is 1.03. The right ankle brachial index by the dorsalis pedis is 1.01. The left resting ankle brachial index is 1.02. The left ankle brachial index by the posterior tibial artery is 1.02. The left ankle brachial index by the dorsalis pedis is 0.98. Interpretation Summary Triphasic Doppler waveforms are noted at ankle level bilaterally. Pulse-volume recordings appear satisfactory at all levels bilaterally. Resting ankle-brachial indices are normal bilaterally. There is no evidence of significant arterial occlusive disease in the lower extremities bilaterally. Ordering Physician: Marianne Hidalgo Referring Physician: Marianne Hidalgo Performed By: Adia Ramírez RVT, RDCS
== END ==
PROVIDERS: Referring Provider Nurse Practitioner Family; Visit Provider Nurse Practitioner Family
DX: I70.203 Unspecified atherosclerosis of native arteries of extremities, bilateral legs (principal); R60.0 Localized edema
CPT/HCPCS: 93923

== ENCOUNTER 2019-10-11 19:06 | Emergency (ER) | payer SELFPAY ==
[2019-10-11 19:08] VITALS: BP 120/86; PULSE 99; RESP 18; TEMP 36.6; O2SAT 95; BMI 23.5
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
--- NOTE | 2019-10-11 20:10 | RAD_ITS ---
STUDY: X-RAY - BILATERAL RIBS WITH CHEST REASON FOR EXAM: Female, 49 years old. BILATERAL RIB PAIN RIGHT UNDER BREAST TECHNIQUE - RIBS: 6 view(s) of the ribs. TECHNIQUE - CHEST: Frontal view COMPARISON: None. FINDINGS - RIBS : Possible old fracture of the right seventh rib anteriorly. Possible old left seventh rib fracture posterolaterally. FINDINGS - CHEST: The lungs are clear and expanded. There is no demonstrated pleural abnormality. Normal size heart. Normal mediastinum and gurpreet. Normal visualized pulmonary arteries. Normal visualized aortic arch and descending thoracic aorta. Normal visualized thoracic spine. Normal visualized clavicles and shoulders. There is no demonstrated abnormality of the visualized soft tissue structures of the upper abdomen. RAD/Ribs Jerad Min 4V w/PA Chest IMPRESSION: RIBS: Probable old bilateral seventh rib fractures. CHEST: Normal x-ray examination of the chest. Electronically Signed: Terrell Mishra DO at 20:38 EST Tel [phone], Service support ,
[2019-10-11 21:25] VITALS: BP 113/68; PULSE 87; RESP 17; O2SAT 97
== END 2019-10-11 21:25 | disposition home or self-care (01) ==
PROVIDERS: Emergency Provider Emergency Medicine
DX: S22.32XA Fracture of one rib, left side, initial encounter for closed fracture (principal); S22.31XA Fracture of one rib, right side, initial encounter for closed fracture; Y04.0XXA Assault by unarmed brawl or fight, initial encounter; Y93.9 Activity, unspecified; Y92.9 Unspecified place or not applicable; F32.9 Major depressive disorder, single episode, unspecified; K21.9 Gastro-esophageal reflux disease without esophagitis; Z85.3 Personal history of malignant neoplasm of breast; Z79.82 Long term (current) use of aspirin; Z79.899 Other long term (current) drug therapy; F17.200 Nicotine dependence, unspecified, uncomplicated
CPT/HCPCS: 71111; 99282

== ENCOUNTER → 2020-06-22 09:21 | Outpatient (CLI) | payer MEDICAID, SELFPAY ==
--- NOTE | 2020-06-22 09:27 | BI_ITS ---
MAMMOGRAPHY - BILATERAL DIAGNOSTIC REASON FOR EXAM: Female, 50 years old. 3 week history of left breast discharge. PERTINENT HISTORY: Personal history of breast cancer. Prior right lumpectomy and radiation treatment. Remote left excisional breast biopsy. TECHNIQUE: Digital bilateral breast tessa (3D mammographic acquisition) in the CC and MLO projections. 2-D mediolateral oblique (MLO) and craniocaudad (CC) views of both breasts were obtained. CAD: Full Field Digital Mammography with Computer Added Detection was performed. COMPARISON: Comparison is made with prior study dated 05/08/2018 and 08/26/2017. FINDINGS: Breast Composition: The breasts are heterogeneously dense, which may obscure small masses. There are no dominant masses or suspicious calcifications. Once again, the patient is status post lumpectomy in the upper axillary region of the right breast. Postoperative changes are seen. A tissue clip marker is seen at the excisional site. Stable small benign-appearing bilateral axillary lymph nodes. No other significant abnormalities are identified. There has been no significant change since the prior study. BI/DIAG MAMM W/CAD, BILAT IMPRESSION: Stable bilateral diagnostic mammogram. With the patient''s history of left breast discharge, correlation with ultrasound is recommended. ASSESSMENT CATEGORY: BIRADS Category 0: Incomplete. Need additional imaging evaluation. A letter regarding these results will be sent to the patient by the facility within 30 days. Approximately 10% of breast cancers are not detected by mammography. A normal mammogram should not delay biopsy of a clinically suspicious abnormality. Electronically Signed: Fady Carpio, at 10:29 EDT , Service support ,
--- NOTE | 2020-06-22 09:41 | US_ITS ---
STUDY: ULTRASOUND BREAST - LEFT REASON FOR EXAM: Female, 50 years old. Nipple discharge in the left breast. TECHNIQUE: Axial and longitudinal images of the LEFT breast were performed with a high resolution ultrasound transducer. # OF IMAGES: 20 COMPARISON: Comparison is made with prior mammogram dated 06/22/2020 and prior ultrasound of the left breast dated 05/17/2014. FINDINGS: LEFT Breast: The retroareolar region of the left breast was examined by ultrasound. No sonographic abnormalities seen. US/Breast Limited Unilateral IMPRESSION: No sonographic abnormality is seen. ASSESSMENT CATEGORY: BIRADS Category 1: Negative. A letter regarding these results will be sent to the patient by the facility within 30 days. Electronically Signed: Fady Carpio, at 10:58 EDT , Service support ,
== END ==
DX: N64.52 Nipple discharge (principal); Z86.000 Personal history of in-situ neoplasm of breast
CPT/HCPCS: 76642; 77062; 77066; G0279